=== PATIENT | male | born 1965 | race African-American/Black ===

== ENCOUNTER 2017-03-09 05:10 | Emergency (ER) | payer MEDICARE ==
[2017-03-09] MEDS ORDERED: CLONIDINE 0.2 MG/24 HR PATCH.TDWK TD ONE (06:21)
[2017-03-09] MEDS ORDERED: AMLODIPINE BESYLATE 10 MG TABLET PO ONE (06:22)
[2017-03-09] MEDS ORDERED: CLONIDINE 0.2 MG/24 HR PATCH.TDWK ONE (07:09)
--- NOTE | 2017-03-09 08:08 | ER Document Report ---
ED General - General Chief Complaint: Eye Injury Stated Complaint: EYE AND BACK PAIN TRAVEL OUTSIDE OF THE [place] IN LAST 30 DAYS: No - HPI Patient complains to provider of: right eye injury back pain elevated blood pressure Notes: Patient coming in today for evaluation of right eye pain back pain upon triage note patient's blood pressure was elevated. Patient states that the eye injury occurred when he hit his head on the dorsum of the hand. Patient states swelling to the right eye. Patient states started having drainage of the right eye today therefore came to the ER for further evaluation. Patient denies any contact use. Patient also complains of back pain states this was exacerbated after performing pressure washing the other day. Patient has history of chronic back pain. Patient also states she's been without his blood pressure medications for months. Patient states that he was on amlodipine and clonidine patch. Patient states currently does not have a primary care physician as that he did not like his last doctor. - Related Data Allergies/Adverse Reactions: methadone Allergy (Unknown, Verified 03/09/17 05:12) Past Medical History - Social History Smoking Status: Never Smoker Frequency of alcohol use: None Drug Abuse: None Family History: Reviewed & Not Pertinent - Past Medical History Cardiac Medical History: Reports: Hx Hypertension Endocrine Medical History: Reports: Hx Diabetes Mellitus Type 2 Renal/ Medical History: Denies: Hx Peritoneal Dialysis GI Medical History: Reports: Hx Gastroesophageal Reflux Disease Psychiatric Medical History: Reports: Hx Depression Past Surgical History: Reports: Hx Abdominal Surgery - hernia repair - Immunizations Hx Diphtheria, Pertussis, Tetanus Vaccination: Yes Review of Systems - Review of Systems Constitutional: No symptoms reported EENT: Eye pain Cardiovascular: No symptoms reported Respiratory: No symptoms reported Gastrointestinal: No symptoms reported Genitourinary: No symptoms reported Male Genitourinary: No symptoms reported Musculoskeletal: Back pain Skin: No symptoms reported Hematologic/Lymphatic: No symptoms reported Neurological/Psychological: No symptoms reported -: Yes All other systems reviewed and negative Physical Exam - Vital signs Vitals: Temp Pulse Resp BP Pulse Ox 98.4 F 84 16 210/140 H 96 03/09/17 05:13 03/09/17 05:13 03/09/17 05:13 03/09/17 05:13 03/09/17 05:13 Interpretation: Hypertensive - General General appearance: Appears well, Alert - HEENT Head: Normocephalic. No: Atraumatic - Swelling to the right orbit and bruising. Eyes: Normal Conjunctiva: Normal, Other - Very scant purulent discharge Cornea: Normal Extraocular movements intact: Yes Eyelashes: Normal Pupils: PERRL Right intraocular pressure: 20 Anterior chamber: Normal Fundascopic: Normal - Respiratory Respiratory status: No respiratory distress Chest status: Nontender Breath sounds: Normal Chest palpation: Normal - Cardiovascular Rhythm: Regular Heart sounds: Normal auscultation Murmur: No - Abdominal Inspection: Normal Distension: No distension Bowel sounds: Normal Tenderness: Nontender Organomegaly: No organomegaly - Back Back: Normal, Nontender - Extremities General upper extremity: Normal inspection, Nontender, Normal color, Normal ROM , Normal temperature General lower extremity: Normal inspection, Nontender, Normal color, Normal ROM , Normal temperature, Normal weight bearing. No: Salomon's sign - Neurological Neuro grossly intact: Yes Cognition: Normal Orientation: AAOx4 Deshawn Coma Scale Eye Opening: Spontaneous Deshawn Coma Scale Verbal: Oriented Deshawn Coma Scale Motor: Obeys Commands Deshawn Coma Scale Total: 15 Speech: Normal Motor strength normal: LUE, RUE, LLE, RLE Sensory: Normal - Psychological Associated symptoms: Normal affect, Normal mood - Skin Skin Temperature: Warm Skin Moisture: Dry Skin Color: Normal Course - Re-evaluation Re-evalutation: 03/09/17 14:28 Patient's examination shows no critical etiology. Will however cover his eye with Polytrim for possible infection. Patient's blood pressure did improve with medications and did recommend patient follow-up with local primary care physician I will give the patient's admission to our local social science analyst make sure that he does follow-up prescriptions for his medications were given for one month supply. Patient was given a Lidoderm patch for back pain this is chronic back pain spent patient that he will need follow-up with her PCP for further evaluation - Vital Signs Vital signs: Temp Pulse Resp BP Pulse Ox 98.4 F 84 16 200/129 H 97 03/09/17 05:13 03/09/17 05:13 03/09/17 05:13 03/09/17 08:01 03/09/17 08:00 Discharge - Discharge Clinical Impression: right eye drainage, Acute exacerbation of chronic low back pain Right orbit trauma Qualifiers: Encounter type: initial encounter Qualified Code(s): S05.91XA - Unspecified injury of right eye and orbit, initial encounter Hypertension Qualifiers: Hypertension type: essential hypertension Qualified Code(s): I10 - Essential ( primary) hypertension Condition: Good Disposition: HOME, SELF-CARE Instructions: Eye Socket Trauma ([facility]), Low Back Pain ([facility]) Additional Instructions: Examination of your eye reveals no signs of abrasions or significant trauma. We will place you on eyedrops. Please use the eyedrops that were given to you here to drops 4 times a day for the next 7 days for your eye. The swelling will gradually decrease. You may place cold compresses on your eye. Your blood pressure is elevated today. I recommend that you follow-up with a primary care physician provided or the clinics provided. Please take medications as prescribed. Return to ER symptoms worsen. Prescriptions: Amlodipine Besylate [Norvasc 10 mg Tablet] 10 mg PO DAILY #30 tablet Clonidine [Catapres-Tts 2 (0.2 mg/24 Hr) Transderm Ptch] 1 each TD DAILY 30 Days Forms: Elevated Blood Pressure
[2017-03-09] MEDS ORDERED: POLYMYXIN B SULFATE/TMP OPH SOLN 10 ML OD ONE (08:09)
[2017-03-09 08:18] VITALS: BP 200/129
== END 2017-03-09 08:26 | disposition home or self-care (01) ==
LOC: ER 05:10
DX: S05.91XA Unspecified injury of right eye and orbit, initial encounter (principal); W20.8XXA Other cause of strike by thrown, projected or falling object, initial encounter; G89.29 Other chronic pain; M54.5 Low back pain; I10 Essential (primary) hypertension; E11.9 Type 2 diabetes mellitus without complications; H57.8 Other specified disorders of eye and adnexa; Z88.6 Allergy status to analgesic agent
CPT/HCPCS: 99283; J3490 ×2; A9270

== ENCOUNTER 2017-06-08 07:23 | Emergency (ER) | payer MEDICARE ==
[2017-06-08] MEDS ORDERED: AMLODIPINE BESYLATE 5 MG TABLET PO ONE ×2 (08:02→12:10)
--- NOTE | 2017-06-08 08:05 | ER Document Report ---
HPI - HPI Patient complains to provider of: skin rash, med refill Onset: Other - 5 days Onset/Duration: Persistent Quality of pain: Achy Pain Level: 4 Context: Patient states that he has had bumps that are tender to his right axilla for the past 5 days. Patient also reports low back pain for the past 3 days that he attributes to recent lifting of heavy objects around his house. Patient states he has had a history of chronic low back pain and this is because it to flareup. Patient additionally reports that he has been out of his blood pressure and diabetes medications for several months. Patient states he used to take amlodipine and Catapres patches as well as insulin. Patient does not have a current primary doctor. Patient denies any headache, chest pain, shortness of breath, abdominal pain Associated Symptoms: Other - skin lesion to r axilla. denies: Chest pain, Productive cough, Headache Exacerbated by: Denies Relieved by: Denies Similar symptoms previously: No Recently seen / treated by doctor: No - ROS ROS below otherwise negative: Yes Systems Reviewed and Negative: Yes All other systems reviewed and negative - CONSTITUTIONAL Constitutional: DENIES: Fever, Chills - NEURO Neurology: DENIES: Headache - CARDIOVASCULAR Cardiovascular: DENIES: Chest pain - RESPIRATORY Respiratory: DENIES: Trouble Breathing, Coughing - GASTROINTESTINAL Gastrointestinal: DENIES: Abdominal Pain, Nausea, Patient vomiting - MUSCULOSKELETAL Musculoskeletal: REPORTS: Back Pain. 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 - Social History Smoking Status: Never Smoker Chew tobacco use (# tins/day): No Frequency of alcohol use: None Drug Abuse: None Occupation: none Lives with: Family Family History: Reviewed & Not Pertinent - Past Medical History Cardiac Medical History: Reports: Hx Hypertension Neurological Medical History: Reports: Hx Cerebrovascular Accident Endocrine Medical History: Reports: Hx Diabetes Mellitus Type 2 Renal/ Medical History: Denies: Hx Peritoneal Dialysis GI Medical History: Reports: Hx Gastroesophageal Reflux Disease Psychiatric Medical History: Reports: Hx Depression Past Surgical History: Reports: Hx Abdominal Surgery - hernia repair - Immunizations Hx Diphtheria, Pertussis, Tetanus Vaccination: Yes Vertical Provider Document - CONSTITUTIONAL Agree With Documented VS: Yes Exam Limitations: No Limitations General Appearance: WD/WN, No Apparent Distress - INFECTION CONTROL TRAVEL OUTSIDE OF THE [place] IN LAST 30 DAYS: No - HEENT HEENT: Atraumatic, Normocephalic - NECK Neck: Normal Inspection, Supple. negative: Lymphadenopathy-Left, Lymphadenopathy-Right - RESPIRATORY Respiratory: Breath Sounds Normal, No Respiratory Distress O2 Sat by Pulse Oximetry: 97 - CARDIOVASCULAR Cardiovascular: Regular Rate, Regular Rhythm, No Murmur - GI/ABDOMEN Gastrointestinal: Abdomen Soft, Abdomen Non-Tender, No Organomegaly - BACK Back: Abnormal Inspection - Lumbar paraspinal tenderness, no midline tenderness , step-off, or deformity. negative: CVA Tenderness-Right, CVA Tenderness-Left - MUSCULOSKELETAL/EXTREMETIES Musculoskeletal/Extremeties: ZECHARIAH, FROM Notes: Normal gait, no foot drop - NEURO Level of Consciousness: Awake, Alert, Appropriate Motor/Sensory: No Motor Deficit, No Sensory Deficit - DERM Integumentary: Warm, Dry, Rash - Pustular skin lesions to right axilla concerning for folliculitis, no drainable abscess Course - Re-evaluation Re-evalutation: 06/08/17 Patient encouraged to follow-up with a primary doctor for further management of his hypertension and diabetes. Patient verbalized understanding of instructions and agrees with plan of care. Discussed worsening signs or symptoms that patient should return. - Vital Signs Vital signs: Temp Pulse Resp BP Pulse Ox 98.1 F 80 20 190/111 H 97 06/08/17 07:29 06/08/17 07:29 06/08/17 07:29 06/08/17 07:29 06/08/17 07:29 - Laboratory Result Diagrams: 06/08/17 08:55 06/08/17 08:55 Discharge - Discharge Clinical Impression: Folliculitis, Hx of essential hypertension, Hx of diabetes mellitus Low back pain Qualifiers: Chronicity: unspecified Back pain laterality: bilateral Sciatica presence: without sciatica Qualified Code(s): M54.5 - Low back pain Condition: Stable Disposition: HOME, SELF-CARE Instructions: Cephalexin ([facility]), Diabetes ([facility]), Folliculitis ([facility]), High Blood Pressure, Requiring Treatment ([facility]), Muscle Relaxers ([facility]), Family Physicians / Practices Additional Instructions: Return immediately for any new or worsening symptoms Followup with your primary care provider, call tomorrow to make a followup appointment Check your blood sugar before breakfast, lunch, and dinner and cover with sliding scale insulin Prescriptions: Amlodipine Besylate 5 mg PO DAILY #30 tab Blood-Glucose Meter, Drum-Type [Accu-Chek] 1 kit MC ASDIR PRN #1 kit PRN Reason: Cephalexin Monohydrate [Keflex 500 mg Capsule] 500 mg PO Q6H 5 Days Clonidine [Catapres-Tts 2 (0.2 mg/24 Hr) Transderm Ptch] 1 each TD ASDIR #4 patch.tdwk Cyclobenzaprine HCl [Flexeril 10 Mg Tablet] 10 mg PO TID #15 tablet Insulin Regular, Human [Novolin R (Reg) Insulin 100 unit/mL] 0 unit SUBCUT .SLD SCALE #10 ml Forms: Elevated Blood Pressure Referrals: [facility] [Provider Group] - Follow up as needed
[2017-06-08 09:19] LABS: ABSOLUTE EOSINOPHILS # (AUTO) 0.2 10^3/uL (0.0-0.6); ABSOLUTE LYMPHOCYTES (AUTO) 1.3 10^3/uL (0.5-4.7); ABSOLUTE MONOCYTES (AUTO) 0.4 10^3/uL (0.1-1.4); ABSOLUTE NEUT (AUTO) 3.6 10^3/uL (1.7-8.2); BASOPHILS % (AUTO) 0.8 % (0-2); EOSINOPHILS % (AUTO) 2.9 % (0-6); HEMATOCRIT 40.2 % (37.9-51.0); HEMOGLOBIN 13.7 g/dL (13.5-17.0); HGB HCT DIFFERENCE 0.9; LYMPHOCYTES % (AUTO) 23.5 % (13-45); MEAN CORPUSCULAR HEMOGLOBIN 30.3 pg (27.0-33.4); MEAN CORPUSCULAR HGB CONC 34.2 g/dL (32.0-36.0); MEAN CORPUSCULAR VOLUME 89 fl (80-97); MONOCYTES % (AUTO) 8.1 % (3-13); RED BLOOD COUNT 4.53 10^6/uL (4.35-5.55); RED CELL DISTRIBUTION WIDTH 13.2 % (11.5-14.0); SEGMENTED NEUTROPHILS % (AUTO) 64.7 % (42-78); WHITE BLOOD COUNT 5.6 10^3/uL (4.0-10.5)
[2017-06-08 09:20] LABS: APPEARANCE,URINE CLEAR; BILIRUBIN,URINE NEGATIVE (NEGATIVE); GLUCOSE, URINE >=500 mg/dL (NEGATIVE); KETONES,URINE NEGATIVE (NEGATIVE); LEUKOCYTE ESTERASE,URINE SMALL (NEGATIVE); NITRITE,URINE NEGATIVE (NEGATIVE); PROTEIN,URINE 30 mg/dL (NEGATIVE); URINE SPECIFIC GRAVITY 1.035; UROBILINOGEN,URINE NEGATIVE mg/dL (<2.0)
[2017-06-08 09:25] LABS: ANION GAP 10 (5-19); BLOOD UREA NITROGEN 27 mg/dL (7-20); CALCIUM 9.2 mg/dL (8.4-10.2); CARBON DIOXIDE 21 mmol/L (22-30); CHLORIDE 104 mmol/L (98-107); CREATININE RESULT 1.17 mg/dL (0.52-1.25); POTASSIUM 4.7 mmol/L (3.6-5.0); SODIUM 135.2 mmol/L (137-145)
[2017-06-08 09:36] LABS: GLUCOSE 401 mg/dL (75-110)
[2017-06-08] MEDS ORDERED: NORMAL SALINE 1000 ML 1,000 ML IV ONE (09:45)
[2017-06-08] MEDS ORDERED: CEFTRIAXONE RTU 1 GM/D5W 50 ML IV ONE (09:53)
[2017-06-08] MEDS ORDERED: INSULIN REG, HUMAN 100 UNIT/ML 3 ML VIAL (PYX) SUBCUT ONE (10:00)
[2017-06-08] MEDS ORDERED: NORMAL SALINE 1000 ML 500 ML IV ONE (10:34)
[2017-06-08] MEDS ORDERED: CLONIDINE HCL 0.2 MG TABLET PO ONE (10:49)
[2017-06-08 13:17] VITALS: BP 182/107
== END 2017-06-08 13:30 | disposition home or self-care (01) ==
LOC: ER 07:23
DX: L73.9 Follicular disorder, unspecified (principal); M54.5 Low back pain; I10 Essential (primary) hypertension; T46.1X6A Underdosing of calcium-channel blockers, initial encounter; T46.5X6A Underdosing of other antihypertensive drugs, initial encounter; E11.9 Type 2 diabetes mellitus without complications; T38.3X6A Underdosing of insulin and oral hypoglycemic [antidiabetic] drugs, initial encounter; Z91.128 Patient's intentional underdosing of medication regimen for other reason; Z91.14 Patient's other noncompliance with medication regimen
CPT/HCPCS: 99283; 96365; 36415; 87086; 82962; 85025; 80048; 81001; A9270 ×3; J7030; J0696; J1815

== ENCOUNTER 2018-09-06 03:51 | Emergency (ER) | payer MEDICARE, MEDICAID ==
[2018-09-06] MEDS ORDERED: LIDOCAINE 5% (700 MG) TRANSDERMAL ADH..PATCH TP ONE (05:00)
[2018-09-06] MEDS ORDERED: IBUPROFEN 600 MG TABLET PO ONE (05:01)
[2018-09-06] MEDS ORDERED: ACETAMINOPHEN 325 MG TABLET PO ONE (05:01)
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
[2018-09-06] MEDS ORDERED: AMLODIPINE BESYLATE 10 MG TABLET PO ONE (06:25)
[2018-09-06 06:36] VITALS: BP 183/103
== END 2018-09-06 06:38 | disposition home or self-care (01) ==
LOC: ER 03:51
DX: M54.5 Low back pain (principal); I10 Essential (primary) hypertension; T46.1X6A Underdosing of calcium-channel blockers, initial encounter; Z91.128 Patient's intentional underdosing of medication regimen for other reason; Z91.14 Patient's other noncompliance with medication regimen; E11.9 Type 2 diabetes mellitus without complications; Z88.5 Allergy status to narcotic agent
CPT/HCPCS: 99283; A9270 ×3

== ENCOUNTER 2018-12-31 01:43 | Emergency (ER) | payer MEDICARE, MEDICAID ==
[2018-12-31] MEDS ORDERED: CEPHALEXIN 500 MG CAPSULE PO ONE (03:44)
[2018-12-31] MEDS ORDERED: CLONIDINE HCL 0.2 MG TABLET PO ONE (03:45)
[2018-12-31] MEDS ORDERED: OXYCODONE-ACETAMINOPHEN 5-325 MG TABLET PO ONE (03:45)
--- NOTE | 2018-12-31 03:51 | ER Document Report ---
ED General - General Chief Complaint: Toothache Stated Complaint: TOOTH PAIN Time Seen by Provider: 12/31/18 02:50 Mode of Arrival: Ambulatory Information source: Patient TRAVEL OUTSIDE OF THE [place] IN LAST 30 DAYS: No - HPI Patient complains to provider of: Right lower jaw pain, uncontrolled hypertension Onset: Other - 2-3 days Onset/Duration: Gradual Quality of pain: Sharp, Stabbing Severity: Severe Associated symptoms: denies: Chills, Fever Exacerbated by: Denies Relieved by: Denies Similar symptoms previously: No Recently seen / treated by doctor: No Notes: Patient is a 53-year-old -[place] male with chief complaint of right lower tooth pain. Symptoms present for 2-3 days. Patient is also hypertensive and has been off of his blood pressure medicine for the past 10 days secondary to no money. He has no chest pain or shortness of breath. - Related Data Allergies/Adverse Reactions: methadone Allergy (Unknown, Verified 09/06/18 04:28) Past Medical History - General Information source: Patient - Social History Smoking Status: Never Smoker Family History: Reviewed & Not Pertinent Patient has suicidal ideation: No Patient has homicidal ideation: No - Past Medical History Cardiac Medical History: Reports: Hx Hypertension Neurological Medical History: Reports: Hx Cerebrovascular Accident Endocrine Medical History: Reports: Hx Diabetes Mellitus Type 2 Renal/ Medical History: Denies: Hx Peritoneal Dialysis GI Medical History: Reports: Hx Gastroesophageal Reflux Disease Psychiatric Medical History: Reports: Hx Depression Past Surgical History: Reports: Hx Abdominal Surgery - hernia repair - Immunizations Hx Diphtheria, Pertussis, Tetanus Vaccination: Yes Review of Systems - Review of Systems Notes: Constitutional: No fevers. No chills. EENT: Right lower tooth pain Cardiovascular: No chest pain. No palpitations. Respiratory: No cough. No shortness of breath. No respiratory distress. Gastrointestinal: No abdominal pain. No nausea, vomiting, or diarrhea. Genitourinary: Atraumatic. No lesions. No pain. No discharge. Musculoskeletal: Atraumatic. No swelling. No deformities. Skin: No rash or lesions. Lymphatic: No swollen lymph nodes. Neurologic: No headache. No syncope. Psychiatric: No suicidal or homicidal ideation. Physical Exam - Vital signs Vitals: Temp Pulse Resp BP Pulse Ox 98.8 F 89 20 236/147 H 99 12/31/18 02:05 12/31/18 02:05 12/31/18 02:05 12/31/18 02:05 12/31/18 02:05 - Notes Notes: General: Well-developed, well-nourished. In no acute distress. Non-toxic appearing. Cardiac: Well-perfused. Regular rate and rhythm. No murmurs, rubs, or gallops. Pulmonary: No respiratory distress. No cyanosis. Bilateral lung fiels are clear to auscultation. Abdominal: Non-distended. Non-rigid. Bowels sounds are present in all four quadrants. No guarding or rebound. HEENT: Right lower first molar decayed and large cavity present. Tender to palpate. No visible gum abscess. No trismus. No drooling. No submandibular or sublingual swelling. No dysphonia dyspnea or dysphagia. Neck: Supple. No adenopathy. No meningismus. Dermatologic: Warm with good turgor. No rash. Atraumatic. Chest: Atraumatic. No chest wall tenderness to palpation. Musculoskeletal: Moves all extremities well. No range of motion deficits. no muscular or joint tenderness. No paraspinal muscle tenderness. no midline spinal tenderness or step-off. Genitourinary: Examination deferred Neurologic: No gross neurologic deficits. Psychiatric: Normal mood. Course - Re-evaluation Re-evalutation: 12/31/18 03:49 We will go ahead and give the patient is first dose of antibiotics as well as something for pain. Also order some Catapres to get his blood pressure safely down. Apparently patient takes lisinopril and nothing else for his blood pressure. We will provide a prescription for 20 mg lisinopril tablets upon discharge. - Vital Signs Vital signs: Temp Pulse Resp BP Pulse Ox 98.8 F 89 20 236/147 H 99 12/31/18 02:05 12/31/18 02:05 12/31/18 02:05 12/31/18 02:05 12/31/18 02:05 Discharge - Discharge Clinical Impression: Uncontrolled hypertension, Patient noncompliance, Dental abscess Condition: Good Disposition: HOME, SELF-CARE Instructions: Toothache ([facility]), Oral Narcotic Medication ([facility]), [facility], Cephalexin ([facility]) Additional Instructions: [facility] for management of your blood pressure and also for dental services. Prescriptions: Tramadol HCl [Ultram] 50 mg PO Q6HP PRN #12 tablet PRN Reason: Cephalexin Monohydrate [Keflex 500 mg Capsule] 500 mg PO Q6H 7 Days #28 capsule Lisinopril [Zestril] 20 mg PO DAILY #30 tablet Referrals: [facility] [Provider Group] - Follow up as needed
[2018-12-31] MEDS ORDERED: HYDRALAZINE HCL 25 MG TABLET PO ONE (05:23)
[2018-12-31 06:01] VITALS: BP 185/111
== END 2018-12-31 06:04 | disposition home or self-care (01) ==
LOC: ER 01:43
DX: K04.7 Periapical abscess without sinus (principal); I10 Essential (primary) hypertension; Z91.19 Patient's noncompliance with other medical treatment and regimen; K08.89 Other specified disorders of teeth and supporting structures; R68.84 Jaw pain; E11.9 Type 2 diabetes mellitus without complications; Z79.899 Other long term (current) drug therapy
CPT/HCPCS: 99282; A9270 ×4